=== PATIENT | male | born 1995 | race Caucasian/White ===

== ENCOUNTER 2019-01-25 15:10 | Inpatient (IN) | payer OTHER ==
[~2019-01-25] VITALS: Ht 170.2 cm; Wt 77.1 kg
[2019-02-19] MEDS ORDERED: LEVO-T25 MCG PO (15:07)
[2019-03-03] MEDS ORDERED: INTESTINEX680 M1 PO (11:57)
[2019-03-03] MEDS ORDERED: PERCOCET 5-3251 EACH PO (11:57)
== END 2019-03-03 12:56 | disposition home or self-care (01) | DRG 331 ==
LOC: ADM 02-19 13:30 → EDSTATUS 02-19 13:30 → SURG 02-26 13:30 → SURH 02-28 06:00 → O/R 02-28 06:00 → SURG 02-28 13:30 → SURH 02-28 13:43 → SURG 02-28 16:15 → SURH 03-03 12:56
PROVIDERS: ADMIT Surgery
PROC: 0DJD8ZZ Inspection of Lower Intestinal Tract, Via Natural or Artificial Opening Endoscopic (ICD-10-PCS; 2019-02-28)
PROC: 0DTN4ZZ Resection of Sigmoid Colon, Percutaneous Endoscopic Approach (ICD-10-PCS; principal; 2019-02-28 16:15)
DX: K57.20 Diverticulitis of large intestine with perforation and abscess without bleeding (principal); K63.89 Other specified diseases of intestine; E03.8 Other specified hypothyroidism

== ENCOUNTER 2019-02-26 06:00 | Day surgery (SDC) | payer OTHER ==
[~2019-02-26 06:00] MED LIST: LEVO-T25 MCG PO
== END 2019-02-26 12:00 | disposition home or self-care (01) ==
LOC: AMB-ENDOS 06:00
DX: K57.32 Diverticulitis of large intestine without perforation or abscess without bleeding (principal); K57.30 Diverticulosis of large intestine without perforation or abscess without bleeding; K64.8 Other hemorrhoids

== ENCOUNTER 2019-12-17 08:57 | Day surgery (SDC) | payer OTHER ==
[~2019-12-17 08:57] MED LIST changes: +INTESTINEX680 M1 PO; +PERCOCET 5-3251 EACH PO
== END 2019-12-17 15:00 | disposition home or self-care (01) ==
LOC: AMB-ENDOS 08:57
PROVIDERS: ATTEND Surgery
DX: K62.89 Other specified diseases of anus and rectum (principal); K64.8 Other hemorrhoids; Z20.828 Contact with and (suspected) exposure to other viral communicable diseases